=== PATIENT | female | born 1935 | race Caucasian/White ===

== ENCOUNTER → 2016-07-24 | Outpatient (CLI) | payer MEDICARE, OTHER ==
[~2016-07-24] MED LIST: ASPI1TAB69 PO; AZO-95TA2 PO; BYST5TAB2 PO; CETI-1 PO; CIPR-9 PO; CO Q200C PO; CPMMACHINE; ESTR42.5V VAGINAL; FERR65TA PO; FLUT1SPR5 EACH NARE; HYDR-3580 PO; KRIL300C PO; MULT-135 PO; NITR1CAP37 PO; REST0.05 EACH EYE; TAMO20TA6 PO; TEMA15CA PO; WALKER WHEELS/F1 MIS; XARE10TA PO; ZYRT10CA PO
[2016-07-24 13:08] LABS: BACTERIA, URINE RARE /hpf; BLOOD, URINE TRACE (NEG); COMMENT (UR) CULTURE INDICATED; CULTURE IF INDICATED CULTURE INDICATED; GLUCOSE,URINE NEG (NEG); HYALINE CAST, URINE 1 /lpf (RARE); KETONE, URINE NEG (NEG); NITRITE,URINE POS (NEG); PH, URINE 6.5 (5.0-8.5); SQUAMOUS EPITHELIAL CELL URINE <1 /hpf (0-5); URINE COLOR LIGHT-YELLOW (YELLW/STRAW)
== END ==
LOC: EDBD → PLAB 11:04
PROVIDERS: ATTEND Orthopaedic Surgery Orthopaedic Surgery of the Spine
DX: N39.0 Urinary tract infection, site not specified (principal); B96.1 Klebsiella pneumoniae [K. pneumoniae] as the cause of diseases classified elsewhere
CPT/HCPCS: 81001; 87077; 87086; 87186

== ENCOUNTER → 2016-10-25 | Outpatient (CLI) | payer MEDICARE, OTHER ==
[~2016-10-25] MED LIST changes: -ASPI1TAB69 PO; -CO Q200C PO; -FERR65TA PO; -KRIL300C PO; -TAMO20TA6 PO; -XARE10TA PO
[2016-10-25 16:54] LABS: BACTERIA, URINE OCC /hpf; BLOOD, URINE NEG (NEG); COMMENT (UR) CULTURE INDICATED; CULTURE IF INDICATED CULTURE INDICATED; GLUCOSE,URINE NEG (NEG); KETONE, URINE NEG (NEG); NITRITE,URINE POS (NEG); SQUAMOUS EPITHELIAL CELL URINE 7 /hpf (0-5); URINE COLOR YELLOW (YELLW/STRAW)
== END ==
LOC: EDBD → PLAB 15:50
PROVIDERS: ATTEND Obstetrics & Gynecology Gynecology
DX: N39.0 Urinary tract infection, site not specified (principal); B96.1 Klebsiella pneumoniae [K. pneumoniae] as the cause of diseases classified elsewhere
CPT/HCPCS: 81001; 87077; 87086; 87186

== ENCOUNTER → 2016-11-29 | Outpatient (CLI) | payer MEDICARE, OTHER ==
[~2016-11-29] MED LIST changes: -AZO-95TA2 PO; -CIPR-9 PO; -HYDR-3580 PO; -NITR1CAP37 PO
[2016-11-29 14:21] LABS: AUTOMATED NEUTROPHIL # 3.9 TH/MM3 (1.8-7.7); BASOPHIL % 0.4 % (0.0-2.0); EOSINOPHIL # 0.1 TH/MM3 (0-0.4); EOSINOPHIL % 1.4 % (0.0-4.0); HEMATOCRIT 35.3 % (35.0-46.0); HEMO FLAGS DIFF FINAL; LYMPHOCYTE # 2.4 TH/MM3 (1.0-4.8); MEAN CELL VOLUME 91.3 FL (80.0-100.0); MEAN CORPUSCULAR HEMOGLOBIN 30.5 PG (27.0-34.0); MEAN CORPUSCULAR HGB CONC 33.4 % (32.0-36.0); MONO % 8.3 % (0.0-8.0); NEUT % 55.9 % (16.0-70.0); PLATELET COUNT 278 TH/MM3 (150-450); RED BLOOD COUNT 3.87 MIL/MM3 (4.00-5.30); RED CELL DISTRIBUTION WIDTH 14.9 % (11.6-17.2)
[2016-11-29 14:23] LABS: BLOOD, URINE NEG (NEG); GLUCOSE,URINE NEG (NEG); HYALINE CAST, URINE 1 /lpf (RARE); KETONE, URINE NEG (NEG); NITRITE,URINE NEG (NEG); PH, URINE 6.5 (5.0-8.5); SQUAMOUS EPITHELIAL CELL URINE 1 /hpf (0-5); URINE COLOR YELLOW (YELLW/STRAW)
[2016-11-29 14:27] LABS: COMMENT (UR) CULT NOT INDICATED; CULTURE IF INDICATED CULT NOT INDICATED
[2016-11-29 14:44] LABS: ALKALINE PHOSPHATASE 81 U/L (45-117); ALT (GPT) 27 U/L (10-53); ANION GAP 5 MEQ/L (5-15); AST (GOT) 25 U/L (15-37); BICARBONATE 31.6 MEQ/L (21.0-32.0); BLOOD UREA NITROGEN 18 MG/DL (7-18); CHLORIDE 99 MEQ/L (98-107); GLOMERULAR FILTRATION RATE 65 ML/MIN (>89); GLUCOSE,FASTING 92 MG/DL (74-99); POTASSIUM 4.2 MEQ/L (3.5-5.1); SODIUM (NA) 136 MEQ/L (136-145); TOTAL BILIRUBIN ADULT 0.5 MG/DL (0.2-1.0)
== END ==
LOC: EDBD → CPRE 13:54
PROVIDERS: ATTEND Obstetrics & Gynecology Gynecology
DX: Z01.810 Encounter for preprocedural cardiovascular examination (principal); Z01.812 Encounter for preprocedural laboratory examination; N95.0 Postmenopausal bleeding
CPT/HCPCS: 36415; 80053; 81001; 85025

== ENCOUNTER → 2016-12-07 | Day surgery (SDC) | payer MEDICARE, OTHER ==
--- NOTE | 2016-11-30 08:21 | MH ---
cc: GHASSAN ARNOLD MD DATE OF ADMISSION 12/07/2016 DATE OF 1935 REASON FOR ADMISSION Hysteroscopy, D&C HISTORY OF PRESENT ILLNESS Patient is a 80-year-old white female 5, para 4 who has had an issue with breast cancer and was on tamoxifen for three years. She had an episode of postmenopausal bleeding and was found to have a thickened endometrial stripe. The patient had previous hysteroscopy and polypectomy a few years ago with benign pathology. Her ultrasound in November of 2016 shows a 9 mm stripe. The patient was given options and she has opted for repeat hysteroscopy. PAST MEDICAL HISTORY 1. Hypertension, 2. Hypercholesterolemia, 3. Breast cancer. 4. History of recurrent bladder infections. PAST SURGICAL HISTORY 1. Lumpectomy 2. Knee replacement bilaterally 3. Hysteroscopy D&C. ALLERGIES SULFA MEDICATIONS Bystolic 5 mg daily. GYNECOLOGIC HISTORY No STDs, abnormal Pap smears. Bleeding issue as noted above. OBSTETRICAL HISTORY Four vaginal deliveries. FAMILY HISTORY Noncontributory. SOCIAL HISTORY Has good social support. . No alcohol or drugs. REVIEW OF SYSTEMS Negative for chest pain, orthopnea, PND. PHYSICAL EXAMINATION VITAL SIGNS: She is afebrile. Vital signs stable. Blood pressure is 120/70, height is 5 feet 5 inches, weight 145, BMI is 24. GENERAL: Patient is alert, oriented in no acute distress, no sign of cognitive dysfunction or depression. HEENT: Within normal limits. NECK: Supple. No JVD. CHEST: Clear. HEART: Regular rate and rhythm. ABDOMEN: Soft, nontender. No hepatosplenomegaly. No CVA tenderness. PELVIC: Exam will be detailed under anesthesia. EXTREMITIES: Normal skin without rashes. NEUROLOGIC : Nonfocal. No DVT signs. ASSESSMENT Patient with postmenopausal bleeding, thickened endometrial stripe, history of tamoxifen use and prior benign polypectomy. The patient has opted to proceed with repeat hysteroscopy. She is aware of the risks, benefits and alternatives to planned procedure including damage to surrounding organs, bleeding, infection, need for further surgery. The patient will use DVT prophylaxis with Ancef 2 grams and she will use DVT prophylaxis with sequential compression device. Anticipate outpatient procedure. Ghassan Arnold MD CS/SA /5:03 PM /8:16 AM
[~2016-12-07] VITALS: Ht 166.4 cm; Wt 67.2 kg
[~2016-12-07] MED LIST changes: +*ONDANSETRON 4 MG VIAL PERIprocedural Use ONLY ONE; +ACETAMINOPHEN 1000 MG/100 ML VIAL IV ONE; +CHLORHEXIDINE GLUCONATE 2 % 1 PACK (2 CLOTHS) TOPICAL PRN; -CPMMACHINE; +DEXAMETHASONE SOD PHOS 4 MG/ML VIAL ONE; +DO NOT ADM ANY ANTICOAGULANT DRUGS PRN; +FAMOTIDINE 20 MG/2 ML VIAL ONE; +INSULIN HUMAN REGULAR 1,000 UNITS/10 ML VIAL SQ PRN; +KETOROLAC TROMETHAMINE 30 MG/ML (IVP) VIAL IV PUSH PRN; +KETOROLAC TROMETHAMINE 60 MG/2 ML (IM) VIAL IM ONE; +LACTATED RINGER'S 1000 ML IV PRN; +METOPROLOL TARTRATE 25 MG TAB PO PRN; +MIDAZOLAM HCL 2 MG/2 ML VIAL ONE; -MULT-135 PO; +ONDANSETRON HCL 4 MG/2 ML VIAL IV PUSH ONE; +ONDANSETRON HCL 4 MG/2 ML VIAL IV PUSH PRN; +POVIDONE IODINE 5% (ANTISEPSIS KIT) 4 APPLICATIONS EACH NARE PRN; +PROPOFOL 200 MG/20 ML AMP IV ONE; +SODIUM CHLORID 0.9% 500 ML IV PRN; -WALKER WHEELS/F1 MIS; -ZYRT10CA PO; +ceFAZolin 2 GM PREMIX 50 ML IV SCH; +traMADol HCL 50 MG TAB PO PRN
[2016-12-07 06:54] VITALS: BP 150/70; PULSE 60; RESP 18; TEMP 97.9; O2SAT 100
[2016-12-07 10:39] VITALS: BP 143/63; PULSE 53; RESP 16; TEMP 97.4; O2SAT 99
--- NOTE | 2016-12-08 18:25 | MP ---
cc: GHASSAN ARNOLD MD DATE OF SURGERY 12/07/16 PREOPERATIVE DIAGNOSES Abnormal pelvic ultrasound with thickened endometrial stripe and postmenopausal bleeding. POSTOPERATIVE DIAGNOSIS Abnormal pelvic ultrasound with thickened endometrial stripe and postmenopausal bleeding. Endometrial polyp. PROCEDURE Operative hysteroscopy with removal of 2 cm endometrial polyp. SURGEON MD Deo ANESTHESIA Laryngeal mask. BLOOD LOSS 5 cc. URINE OUTPUT 300 prior to case. STOCK TAKER [place] staff x1. FINDINGS Externa genitalia normal. POP-Q score: Aa is -1, Ap is -1. Point C is -3. Total vaginal length is 10. Genital hiatus is 8. Perineal body is 4. Uterus sounds to 8 cm, mobile, anteverted, anteflexed. No adnexal mass. Hysteroscopy shows a sessile 2-cm polyp posterior wall, otherwise, relatively atrophic endometrium. COMPLICATIONS None. DISPOSITION Recovery room stable. COUNTS Needle, sponge correct. DRAINS None. SPECIMENS Endometrial polyp. Endometrial curettage. SUMMARY OF INDICATION PROCEDURE Patient with history of breast cancer, had been using tamoxifen, had been worked up for issues with pelvic prolapse and urinary urgency, was found to have thickened endometrial stripe. With the patient's history of tamoxifen used hysteroscopy was recommended with polypectomy. PROCEDURE IN DETAIL The patient was taken to the operating theater, prepped and draped in fashion appropriate for planned procedure. She was in dorsal lithotomy position with careful attention paid to placement of legs in stirrups to avoid undue stress to sensitive neurovascular structures. Above findings noted. Neurovascular integrity documented. Bladder was drained. Cervix was grasped with tenaculum. Cervix required minimal dilation. Uterus sounds to 8 cm. 5 mm scope was used with normal saline as distension medium. The above findings noted. Sessile polyp was identified and removed mechanically with no electric energy. Hemostasis was good. Curettage was obtained. Repeat hysteroscopy was performed showing atrophic endometrium and removal of polyp. Procedure was concluded. The patient reversed from anesthesia to recovery room in stable condition. The patient has issues with pelvic prolapse. She could be reasonable anterior posterior repair candidate with vaginal hysterectomy. Ghassan Arnold MD CS/EO /9:10 AM /6:13 PM
== END | disposition home or self-care (01) ==
LOC: HSDC 06:20 → EDBD 06:20
PROVIDERS: ATTEND Obstetrics & Gynecology Gynecology
DX: N84.0 Polyp of corpus uteri (principal); N95.0 Postmenopausal bleeding; I10 Essential (primary) hypertension; E78.00 Pure hypercholesterolemia, unspecified; Z85.3 Personal history of malignant neoplasm of breast; Z96.653 Presence of artificial knee joint, bilateral; Z88.2 Allergy status to sulfonamides; Z79.810 Long term (current) use of selective estrogen receptor modulators (SERMs)
CPT/HCPCS: 88305; J0131; J0690; J1100; J1885; J2250; J2405; J3010; J7120

== ENCOUNTER → 2017-03-07 | Outpatient (CLI) | payer MEDICARE, OTHER ==
[~2017-03-07] MED LIST changes: -*ONDANSETRON 4 MG VIAL PERIprocedural Use ONLY ONE; -ACETAMINOPHEN 1000 MG/100 ML VIAL IV ONE; -CHLORHEXIDINE GLUCONATE 2 % 1 PACK (2 CLOTHS) TOPICAL PRN; -DEXAMETHASONE SOD PHOS 4 MG/ML VIAL ONE; -DO NOT ADM ANY ANTICOAGULANT DRUGS PRN; -FAMOTIDINE 20 MG/2 ML VIAL ONE; -INSULIN HUMAN REGULAR 1,000 UNITS/10 ML VIAL SQ PRN; -KETOROLAC TROMETHAMINE 30 MG/ML (IVP) VIAL IV PUSH PRN; -KETOROLAC TROMETHAMINE 60 MG/2 ML (IM) VIAL IM ONE; -LACTATED RINGER'S 1000 ML IV PRN; -METOPROLOL TARTRATE 25 MG TAB PO PRN; -MIDAZOLAM HCL 2 MG/2 ML VIAL ONE; -ONDANSETRON HCL 4 MG/2 ML VIAL IV PUSH ONE; -ONDANSETRON HCL 4 MG/2 ML VIAL IV PUSH PRN; -POVIDONE IODINE 5% (ANTISEPSIS KIT) 4 APPLICATIONS EACH NARE PRN; -PROPOFOL 200 MG/20 ML AMP IV ONE; -SODIUM CHLORID 0.9% 500 ML IV PRN; -ceFAZolin 2 GM PREMIX 50 ML IV SCH; -traMADol HCL 50 MG TAB PO PRN
[2017-03-07 12:47] LABS: AUTOMATED NEUTROPHIL # 2.4 TH/MM3 (1.8-7.7); BASOPHIL % 0.6 % (0.0-2.0); EOSINOPHIL # 0.2 TH/MM3 (0-0.4); EOSINOPHIL % 3.3 % (0.0-4.0); HEMATOCRIT 36.9 % (35.0-46.0); HEMO FLAGS DIFF FINAL; LYMPH % 42.5 % (9.0-44.0); LYMPHOCYTE # 2.3 TH/MM3 (1.0-4.8); MEAN CELL VOLUME 94.5 FL (80.0-100.0); MEAN CORPUSCULAR HEMOGLOBIN 31.9 PG (27.0-34.0); MEAN CORPUSCULAR HGB CONC 33.7 % (32.0-36.0); MONO % 9.7 % (0.0-8.0); NEUT % 43.9 % (16.0-70.0); PLATELET COUNT 271 TH/MM3 (150-450); RED BLOOD COUNT 3.91 MIL/MM3 (4.00-5.30); RED CELL DISTRIBUTION WIDTH 13.5 % (11.6-17.2); WHITE BLOOD COUNT 5.5 TH/MM3 (4.0-11.0)
[2017-03-07 13:20] LABS: ANION GAP 6 MEQ/L (5-15); AST (GOT) 22 U/L (15-37); BICARBONATE 29.8 MEQ/L (21.0-32.0); BLOOD UREA NITROGEN 18 MG/DL (7-18); CHLORIDE 103 MEQ/L (98-107); GLOMERULAR FILTRATION RATE 71 ML/MIN (>89); GLUCOSE,FASTING 81 MG/DL (74-99); POTASSIUM 4.1 MEQ/L (3.5-5.1); SODIUM (NA) 139 MEQ/L (136-145)
[2017-03-07 13:33] LABS: ALKALINE PHOSPHATASE 74 U/L (45-117); ALT (GPT) 23 U/L (10-53); TOTAL BILIRUBIN ADULT 0.5 MG/DL (0.2-1.0)
== END ==
LOC: PLAB 08:32
PROVIDERS: ATTEND Family Medicine
DX: I10 Essential (primary) hypertension (principal); E34.9 Endocrine disorder, unspecified
CPT/HCPCS: 36415; 80053; 84443; 85025

== ENCOUNTER → 2017-07-17 | Outpatient (CLI) | payer MEDICARE, OTHER ==
[2017-07-17 09:37] LABS: AUTOMATED NEUTROPHIL # 2.4 TH/MM3 (1.8-7.7); BASOPHIL % 0.6 % (0.0-2.0); EOSINOPHIL # 0.2 TH/MM3 (0-0.4); EOSINOPHIL % 3.5 % (0.0-4.0); HEMATOCRIT 35.2 % (35.0-46.0); HEMOGLOBIN 12.1 GM/DL (11.6-15.3); LYMPH % 39.5 % (9.0-44.0); LYMPHOCYTE # 2.1 TH/MM3 (1.0-4.8); MEAN CELL VOLUME 92.9 FL (80.0-100.0); MEAN CORPUSCULAR HEMOGLOBIN 31.9 PG (27.0-34.0); MEAN CORPUSCULAR HGB CONC 34.4 % (32.0-36.0); MEAN PLATELET VOLUME 7.2 FL (7.0-11.0); MONO % 11.3 % (0.0-8.0); MONOCYTE # 0.6 TH/MM3 (0-0.9); NEUT % 45.1 % (16.0-70.0); PLATELET COUNT 284 TH/MM3 (150-450); RED BLOOD COUNT 3.79 MIL/MM3 (4.00-5.30); RED CELL DISTRIBUTION WIDTH 13.7 % (11.6-17.2); WHITE BLOOD COUNT 5.2 TH/MM3 (4.0-11.0)
[2017-07-17 10:01] LABS: BICARBONATE 27.5 MEQ/L (21.0-32.0); CALCIUM 8.9 MG/DL (8.5-10.1); CREATININE 0.85 MG/DL (0.50-1.00)
== END ==
LOC: PLAB 08:03
PROVIDERS: ATTEND Orthopaedic Surgery Orthopaedic Surgery of the Spine
DX: Z01.812 Encounter for preprocedural laboratory examination (principal); M25.531 Pain in right wrist; G56.01 Carpal tunnel syndrome, right upper limb
CPT/HCPCS: 36415; 80048; 85025

== ENCOUNTER → 2017-09-03 | Outpatient (CLI) | payer MEDICARE, OTHER ==
[2017-09-03 13:35] LABS: AUTOMATED NEUTROPHIL # 2.6 TH/MM3 (1.8-7.7); BASOPHIL % 0.5 % (0.0-2.0); EOSINOPHIL # 0.2 TH/MM3 (0-0.4); EOSINOPHIL % 2.7 % (0.0-4.0); HEMATOCRIT 36.5 % (35.0-46.0); HEMOGLOBIN 12.5 GM/DL (11.6-15.3); LYMPH % 40.4 % (9.0-44.0); LYMPHOCYTE # 2.2 TH/MM3 (1.0-4.8); MEAN CELL VOLUME 94.4 FL (80.0-100.0); MEAN CORPUSCULAR HEMOGLOBIN 32.4 PG (27.0-34.0); MEAN CORPUSCULAR HGB CONC 34.4 % (32.0-36.0); MEAN PLATELET VOLUME 7.4 FL (7.0-11.0); MONO % 9.4 % (0.0-8.0); MONOCYTE # 0.5 TH/MM3 (0-0.9); PLATELET COUNT 279 TH/MM3 (150-450); RED BLOOD COUNT 3.87 MIL/MM3 (4.00-5.30); RED CELL DISTRIBUTION WIDTH 13.5 % (11.6-17.2); WHITE BLOOD COUNT 5.5 TH/MM3 (4.0-11.0)
[2017-09-03 13:43] LABS: BACTERIA, URINE MOD /hpf; BILIRUBIN, URINE NEG (NEG); BLOOD, URINE TRACE (NEG); GLUCOSE,URINE NEG (NEG); KETONE, URINE NEG (NEG); MUCUS URINE FEW /lpf (OCC); NITRITE,URINE NEG (NEG); SQUAMOUS EPITHELIAL CELL URINE 3 /hpf (0-5); URINE COLOR LIGHT-YELLOW (YELLW/STRAW); URINE LEUKOCYTE ESTERASE NEG (NEG)
[2017-09-03 13:45] LABS: ALBUMIN 3.9 GM/DL (3.4-5.0); AST (GOT) 21 U/L (15-37); BLOOD UREA NITROGEN 21 MG/DL (7-18); CALCIUM 9.2 MG/DL (8.5-10.1); CHLORIDE 103 MEQ/L (98-107); CHOLESTEROL 249 MG/DL (120-200); CREATININE 0.82 MG/DL (0.50-1.00); GLOMERULAR FILTRATION RATE 67 ML/MIN (>89); GLUCOSE,FASTING 83 MG/DL (74-99); SODIUM (NA) 138 MEQ/L (136-145)
[2017-09-03 13:55] LABS: ALKALINE PHOSPHATASE 73 U/L (45-117); ALT (GPT) 18 U/L (10-53); CHOLESTEROL/ HDL RATIO 3.49 RATIO; HDL CHOLESTEROL 71.3 MG/DL (40.0-60.0); LDL CHOLESTEROL 147 MG/DL (0-99); LDL CHOLESTEROL DIRECT 161 MG/DL (0-99); TOTAL BILIRUBIN ADULT 0.5 MG/DL (0.2-1.0); TOTAL PROTEIN 7.3 GM/DL (6.4-8.2); TRIGLYCERIDES 155 MG/DL (42-150)
== END ==
LOC: PLAB 08:21
PROVIDERS: ATTEND Family Medicine
DX: I10 Essential (primary) hypertension (principal); E78.5 Hyperlipidemia, unspecified; R31.29 Other microscopic hematuria
CPT/HCPCS: 36415; 80053; 80061; 81001; 83721; 84443; 85025; 87086

== ENCOUNTER → 2017-09-19 | Outpatient (CLI) | payer MEDICARE, OTHER ==
[~2017-09-19] MED LIST changes: +MULTTAB67 PO; +TEMA7.5C PO
[2017-09-19 10:39] LABS: AUTOMATED NEUTROPHIL # 2.8 TH/MM3 (1.8-7.7); BASOPHIL % 0.5 % (0.0-2.0); EOSINOPHIL # 0.2 TH/MM3 (0-0.4); EOSINOPHIL % 2.8 % (0.0-4.0); HEMATOCRIT 35.7 % (35.0-46.0); HEMOGLOBIN 12.3 GM/DL (11.6-15.3); LYMPH % 36.3 % (9.0-44.0); MEAN CELL VOLUME 93.4 FL (80.0-100.0); MEAN CORPUSCULAR HGB CONC 34.3 % (32.0-36.0); MEAN PLATELET VOLUME 7.1 FL (7.0-11.0); MONO % 10.6 % (0.0-8.0); MONOCYTE # 0.6 TH/MM3 (0-0.9); NEUT % 49.8 % (16.0-70.0); PLATELET COUNT 282 TH/MM3 (150-450); RED BLOOD COUNT 3.83 MIL/MM3 (4.00-5.30); RED CELL DISTRIBUTION WIDTH 13.4 % (11.6-17.2); WHITE BLOOD COUNT 5.6 TH/MM3 (4.0-11.0)
[2017-09-19 10:42] LABS: PROTHROMBIN TIME - PATIENT 10.1 SEC (9.8-11.6)
[2017-09-19 11:00] LABS: AST (GOT) 22 U/L (15-37); BICARBONATE 27.3 MEQ/L (21.0-32.0); BLOOD UREA NITROGEN 20 MG/DL (7-18); CALCIUM 9.5 MG/DL (8.5-10.1); CHLORIDE 103 MEQ/L (98-107); CREATININE 0.84 MG/DL (0.50-1.00); GLOMERULAR FILTRATION RATE 65 ML/MIN (>89); GLUCOSE,FASTING 83 MG/DL (74-99); SODIUM (NA) 140 MEQ/L (136-145)
[2017-09-19 11:04] LABS: ALKALINE PHOSPHATASE 77 U/L (45-117); ALT (GPT) 20 U/L (10-53); TOTAL BILIRUBIN ADULT 0.5 MG/DL (0.2-1.0); TOTAL PROTEIN 7.1 GM/DL (6.4-8.2)
--- NOTE | 2017-09-19 12:08 | RADRPT ---
EXAM DATE/TIME: 09/19/2017 11:55 [facility] COMPARISON: No previous studies available for comparison. INDICATIONS : Evaluate for pneumonia, pneumothorax and communicable diseases. Pre-op hysterectomy. MEDICAL HISTORY : Carcinoma, breast. Arthritis. Anemia SURGICAL HISTORY : Left breast lumpectomy ENCOUNTER: Initial ACUITY: 1 day PAIN SCORE: 0/10 LOCATION: Bilateral chest FINDINGS: PA and lateral views of the chest demonstrate the lungs to be symmetrically aerated without evidence of mass, infiltrate or effusion. Calcified granuloma right upper lobe. Clips overlying the left ches t. The cardiomediastinal contours are unremarkable. Osseous structures are intact. CONCLUSION: No acute disease. Vasile Watkins MD on September 19, 2017 at 12:06 Board Certified Radiologist. This report was verified electronically.
== END ==
LOC: CPRE 10:00
PROVIDERS: ATTEND Obstetrics & Gynecology Gynecologic Oncology
DX: Z01.810 Encounter for preprocedural cardiovascular examination (principal); Z01.811 Encounter for preprocedural respiratory examination; Z01.812 Encounter for preprocedural laboratory examination; Z01.818 Encounter for other preprocedural examination; N95.0 Postmenopausal bleeding; N85.00 Endometrial hyperplasia, unspecified
CPT/HCPCS: 36415; 71046; 80053; 85025; 85610; 85730

== ENCOUNTER 2017-10-03 08:25 | Observation (INO) | payer MEDICARE, OTHER ==
[~2017-10-03] VITALS: Ht 165.1 cm; Wt 69.7 kg
[~2017-10-03 08:25] MED LIST changes: -TEMA15CA PO
[2017-10-03] MEDS ORDERED: ceFAZolin 1,000 MG/NS 100 ML IV SCH ×2 (08:45)
[2017-10-03] MEDS ORDERED: HEPARIN SODIUM - SQ 10,000 UNITS/ML VIAL SQ SCH (08:45)
[2017-10-03] MEDS ORDERED: LACTATED RINGER'S 1000 ML IV PRN (09:00)
[2017-10-03] MEDS ORDERED: POVIDONE IODINE 5% (ANTISEPSIS KIT) 4 APPLICATIONS EACH NARE PRN (09:00)
[2017-10-03] MEDS ORDERED: SODIUM CHLORID 0.9% 500 ML IV PRN (09:00)
[2017-10-03] MEDS ORDERED: CHLORHEXIDINE GLUCONATE 2 % 1 PACK (2 CLOTHS) TOPICAL PRN (09:00)
[2017-10-03] MEDS ORDERED: METOPROLOL TARTRATE 25 MG TAB PO PRN (09:00)
[2017-10-03] MEDS ORDERED: INSULIN HUMAN REGULAR 1,000 UNITS/10 ML VIAL SQ PRN (09:00)
[2017-10-03] MEDS ORDERED: ACETAMINOPHEN 1000 MG/100 ML 100 ML IV ONE (11:32)
[2017-10-03] MEDS ORDERED: SUGAMMADEX SODIUM 200 MG/2 ML VIAL IV PUSH ONE (11:32)
[2017-10-03] MEDS ORDERED: FAMOTIDINE 20 MG/2 ML VIAL ONE (11:33)
[2017-10-03] MEDS ORDERED: ONDANSETRON HCL 4 MG/2 ML VIAL IV ONE (12:00)
[2017-10-03] MEDS ORDERED: NORMOSOL R INJ 1,000 ML IV ONE (12:00)
[2017-10-03] MEDS ORDERED: ePHEDrine/NS 25 MG/5 ML SYRINGE IV ONE (12:00)
[2017-10-03] MEDS ORDERED: STERILE WATER FOR INJECTION 20 ML VIAL IV ONE (12:00)
[2017-10-03] MEDS ORDERED: VECURONIUM BROMIDE 20 MG VIAL IV ONE (12:00)
[2017-10-03] MEDS ORDERED: GLYCOPYRROLATE 1 MG/5 ML SYRINGE IV PUSH ONE (12:00)
[2017-10-03] MEDS ORDERED: LIDOCAINE HCL 1% PF 5 ML SYRINGE OTHER ONE (12:00)
[2017-10-03] MEDS ORDERED: DEXAMETHASONE SOD PHOS 4 MG/ML VIAL IV ONE (12:00)
[2017-10-03] MEDS ORDERED: ROCURONIUM INJ 50 MG/5 ML SYRINGE IV PUSH ONE (12:00)
[2017-10-03] MEDS ORDERED: PROPOFOL 200 MG/20 ML AMP IV ONE (12:00)
[2017-10-03] MEDS ORDERED: KETOROLAC TROMETHAMINE 30 MG/ML (IVP) VIAL IV PUSH ONE (12:00)
[2017-10-03] MEDS ORDERED: BUPIVACAINE/EPINEPHRINE 0.25% PF 30 ML VIAL INFIL ONE (14:41)
[2017-10-03] MEDS ORDERED: TEMAZEPAM 7.5 MG CAP PO PRN (15:30)
[2017-10-03] MEDS ORDERED: SODIUM CHLORIDE 0.9% FLUSH 10 ML FLUSH IV FLUSH PRN (15:30)
[2017-10-03] MEDS ORDERED: diphenhydrAMINE HCL 25 MG CAP PO PRN (15:30)
[2017-10-03] MEDS ORDERED: ONDANSETRON HCL 4 MG/2 ML VIAL IVP PRN (15:30)
[2017-10-03] MEDS ORDERED: oxyCODONE/ACETAMINOPHEN 5 MG/325 MG TAB PO PRN (15:30)
[2017-10-03] MEDS ORDERED: MIDAZOLAM HCL 2 MG/2 ML VIAL ONE (15:48)
[2017-10-03] MEDS ORDERED: MORPHINE SULFATE 4 MG/ML INJ ONE (15:49)
[2017-10-03] MEDS: D5-1/2 NS + KCL 20 MEQ INJ 1,000 ML IV SCH (16:00)
[2017-10-03] MEDS ORDERED: KETOROLAC TROMETHAMINE 30 MG/ML (IVP) VIAL IVP SCH (16:00)
[2017-10-03] MEDS ORDERED: *morphine SULFATE 4 MG/ML PERIprocedure ONLY ONE (16:28)
[2017-10-03] MEDS ORDERED: DO NOT ADM ANY ANTICOAGULANT DRUGS PRN (16:30)
[2017-10-03 17:30] VITALS: BP 158/65; PULSE 72; RESP 18; TEMP 97.5; O2SAT 99
[2017-10-03] MEDS: oxyCODONE/ACETAMINOPHEN 5 MG/325 MG TAB PO PRN (18:15)
[2017-10-03] MEDS ORDERED: FLUTICASONE PROPIONATE 50 MCG/ACT 16 GM NASAL SPRAY EACH NARE PRN (21:00)
[2017-10-03] MEDS ORDERED: PATIENT OWN MEDICATION (Cyclosporine Opth (Restasis Opth) 1 DROP) EACH EYE SCH (21:00)
[2017-10-03] MEDS ORDERED: SODIUM CHLORIDE 0.9% FLUSH 10 ML FLUSH IV FLUSH SCH (21:00)
[2017-10-03 21:30] VITALS: BP 164/68; PULSE 66; RESP 18; TEMP 98.2; O2SAT 99
[2017-10-03] MEDS: KETOROLAC TROMETHAMINE 30 MG/ML (IVP) VIAL IVP SCH (22:00)
[2017-10-04] VITALS: BP 150/59; PULSE 62; RESP 18; TEMP 98; O2SAT 97
[2017-10-04] MEDS: D5-1/2 NS + KCL 20 MEQ INJ 1,000 ML IV SCH (01:02)
[2017-10-04 04:00] VITALS: BP 131/49; PULSE 78; RESP 18; TEMP 98.4; O2SAT 97
[2017-10-04] MEDS: KETOROLAC TROMETHAMINE 30 MG/ML (IVP) VIAL IVP SCH (04:27)
[2017-10-04 05:52] LABS: AUTOMATED NEUTROPHIL # 10.4 TH/MM3 (1.8-7.7); BASOPHIL % 0.2 % (0.0-2.0); EOSINOPHIL % 0.1 % (0.0-4.0); HEMATOCRIT 32.1 % (35.0-46.0); HEMOGLOBIN 10.9 GM/DL (11.6-15.3); LYMPH % 12.8 % (9.0-44.0); LYMPHOCYTE # 1.7 TH/MM3 (1.0-4.8); MEAN CELL VOLUME 93.7 FL (80.0-100.0); MEAN CORPUSCULAR HEMOGLOBIN 31.9 PG (27.0-34.0); MEAN PLATELET VOLUME 7.5 FL (7.0-11.0); MONO % 8.4 % (0.0-8.0); MONOCYTE # 1.1 TH/MM3 (0-0.9); NEUT % 78.5 % (16.0-70.0); PLATELET COUNT 244 TH/MM3 (150-450); RED BLOOD COUNT 3.42 MIL/MM3 (4.00-5.30); RED CELL DISTRIBUTION WIDTH 13.1 % (11.6-17.2); WHITE BLOOD COUNT 13.2 TH/MM3 (4.0-11.0)
[2017-10-04 06:19] LABS: BICARBONATE 26.4 MEQ/L (21.0-32.0); CALCIUM 7.6 MG/DL (8.5-10.1); CREATININE 0.67 MG/DL (0.50-1.00)
[2017-10-04] MEDS ORDERED: OXYC1TAB63 PO (07:27)
[2017-10-04 07:46] VITALS: BP 137/53; PULSE 65; RESP 18; TEMP 98.6; O2SAT 99
--- NOTE | 2017-10-04 07:52 | MD ---
cc: Dilma Rg MD, Christopher J MD Billmeier,Juan M Vanegas MD DATE OF DISCHARGE: 10/04/2017 PROCEDURE: 10/03/2017. PROCEDURE PERFORMED: Robotic-assisted laparoscopic hysterectomy, bilateral salpingo-oophorectomy, lysis of adhesions. DIAGNOSIS: Thickened endometrial stripe, postmenopausal bleeding, endometrial polyp. HOSPITAL COURSE: She remained hemodynamically stable, did well in the early postop period tolerating oral intake. Montalvo catheter was left indwelling due to some dissection near the bladder. Objective ins and outs 1600/1650. LABS: H and H this morning 10.9 and 32.1. Electrolytes, BUN and creatinine 11 and 0.67. PHYSICAL EXAMINATION: VITAL SIGNS: Afebrile, pulse 60-78, respirations 16-18, blood pressure 131-164/49-71, O2 saturations greater than or equal to 97%. GENERAL: Alert and oriented x 3, no acute distress. LUNGS: Clear. Mild basilar rales. CARDIOVASCULAR: Regular rate and rhythm. ABDOMEN: Soft. Incision is clean and dry. GYNECOLOGIC: No bleeding. EXTREMITIES: Nontender. ASSESSMENT: Postoperative day #1, doing well in the early postop period. The preliminary pathology findings at the of surgery, steps taken were discussed and reviewed. Questions were asked and answered. Activities and restrictions included in our discussion. She expressed a good understanding. PLAN: Anticipate she will meet criteria for discharge to home today. She is to contact the office to followup in 1 week. She is going to have an indwelling Montalvo due to some oversewing adjacent to the bladder to help facilitate healing. She will be on Macrodantin once daily as a urinary tract prophylaxis. She will have a prescription for Percocet. She is to resume prior medications and she is to call our office to ensure that she has a followup in 1 week or to contact us sooner should she have any questions or problems. Dilma Rg MD KLM/DL , 07:31 AM , 07:51 AM
--- NOTE | 2017-10-04 08:30 | MP ---
cc: Dilma Rg MD, Christopher J MD Billmeier,Juan M Vanegas MD DATE OF OPERATION: 10/03/2017 PREOPERATIVE DIAGNOSIS: 1. Postmenopausal bleeding. 2. Thickened endometrial stripe. POSTOPERATIVE DIAGNOSES: 1. Postmenopausal bleeding. 2. Thickened endometrial stripe. 3. Endometrial polyp and pelvic adhesions and a significant diverticulum without active diverticulitis. PROCEDURE PERFORMED: Laparoscopic hysterectomy, bilateral salpingo-oophorectomy, lysis of adhesions. SURGEON: Dilma Rg MD VARNISH DIPPER: Dylan supply chain assistant. ANESTHESIA: General endotracheal anesthesia. ESTIMATED BLOOD LOSS: 75 mL. URINE OUTPUT: 100 mL. IV FLUIDS: 1400 mL. INDICATIONS: This is a 81-year-old female with a history of breast cancer who had been on tamoxifen, thickened endometrial stripe. Prior sampling showed benign tissue; however, she continued to have some intermittent postmenopausal bleeding. The stripe remained thickened. She had concerns regarding the possibility of malignancy and was troubled by the symptoms and wanted definitive management. She was counseled in our office and seen again in the preoperative holding area where we reviewed the findings and recommendations. The plan of care was again discussed. She expressed a good understanding and would like to move forward with surgery. FINDINGS: The cervix was circumferentially prominent, but otherwise normal. Recent Pap smear was normal. The uterus sounded to 8 cm symmetrically slightly prominent, but otherwise normal. Tubes and ovaries grossly appeared normal. There were no appreciably enlarged retroperitoneal lymph nodes. There were no peritoneal implants. There was significant diverticulum in the descending colon, most noted in the sigmoid colon with some adjacent adhesions against the left pelvic sidewall, left posterior cul-de-sac and in the region of the bladder. There was a prominent posterior cul-de-sac with loops of small bowel suggestive of a chronic enterocele without adhesions to the small bowel. Preliminary pathology shows what appears to be a small benign endometrial polyp. No other significant findings detected. PROCEDURE: She was taken to the operating room and placed in dorsal lithotomy position after general endotracheal anesthesia was administered. Time-out was undertaken. She was identified by site recognition and hospital ID bracelet and the proposed procedure was reviewed and confirmed. She was carefully positioned in padded Henrry stirrups. Her arms were padded and secured to the sides. She was further secured to the operating table with egg crate padding and tape in a cross chest, over the shoulder fashion. All sites noted to be properly aligned with no malalignment or pressure points. She was prepped and draped in sterile fashion, placed in lithotomy position. The cervix was grasped. Uterine cavity was sounded. Cervix dilated and a large VCare manipulator inserted and secured in usual fashion. Montalvo catheter placed in the bladder. She was returned to the low lithotomy position. We confirmed that an orogastric tube was in the stomach on suction. A change of sterile gloves had been undertaken and we completed draping in anticipation of laparoscopy. Manual elevation of the abdominal wall and direct laparoscopic visualization, a 5 mm cannula introduced in the left upper quadrant. An atraumatic entry was confirmed. Carbon dioxide gas was insufflated. A 12 mm cannula placed in the midline above the umbilicus, 8 mm cannula placed in the right upper quadrant, left lateral quadrant and the original 5 exchanged for an 8 mm cannula. She was placed in Trendelenburg position. Peritoneal washings were obtained for cytology. The anatomy was surveyed with findings as described above. The small bowel loops were retracted from the pelvis, rolled back on the mesenteric root into the abdomen and three Ray-Saleem sponges were placed across the root of the small bowel mesentery. The robotic system brought into the operative field, attached in the usual fashion. Robotic system attached in the usual fashion. Monopolar scissors, fenestrated bipolar forceps and a ProGrasp manipulator placed in arms 1, 2 and 3 respectively. I took my place at the surgeon's console. Initial adhesiolysis was started taking down the adhesions from the cul-de-sac, mobilizing the colon from its attachments to the left pelvic sidewall to gain access to the retroperitoneal structures. The right round ligament was isolated, cauterized and transected. The anterior and posterior leaves of the broad ligament were opened. The right ureter was identified. The right infundibulopelvic ligament was isolated to the level of the pelvic brim where it was cauterized and transected. The posterior peritoneum opened along the right side of the uterus and cervix and the right vesicouterine peritoneum was dissected off the lower uterine segment and cervix. Some additional scar tissue was taken down with sharp dissection. The right uterine vessels were skeletonized, cauterized and transected as were the cardinal, paracervical and uterosacral ligaments thereby freeing the attachments along the right side of the uterus and cervix. Additional lysis of adhesion was carried out on the left side. The left round ligament was isolated, cauterized and transected. The anterior and posterior leafs of the broad ligament were opened. Left ureter was identified. Left infundibulopelvic ligament was isolated, it was isolated to the level of the pelvic brim where it was cauterized and transected. Posterior peritoneum opened along the left side of the uterus and cervix and the left vesicouterine peritoneum was dissected off the lower uterine segment and cervix. The left uterine vessels were skeletonized, cauterized and transected as were the cardinal , paracervical and uterosacral ligament, thereby freeing the attachments along the left side of the uterus and cervix. Circumferential colpotomy was performed. Specimen was withdrawn transvaginally which included uterus, cervix, tubes and ovaries. A pneumo-occluder balloon was placed in the vagina to maintain pneumoperitoneum. Instruments 1 and 3 exchanged for needle drivers as a 0 Vicryl suture was introduced. The vaginal cuff was closed starting at the left corner full thickness closure incorporating the uterosacral ligament and posterior peritoneum, tied via instrument tie and a running continuous closure was continued across the vaginal apex toward the contralateral corner where it was similarly fixed, secured and tied. The suture was cut and the needle was removed. An additional [id number]-vp-[id number] supporting suture incorporating the uterosacral ligament on the right side was also placed to help facilitate anatomical support, tied the instrument tie, the needle was cut and removed. The pelvis was thoroughly irrigated. Small bleeders rendered hemostatic with bipolar cautery. All sites satisfactorily hemostatic. The bladder was filled with saline dyed with methylene blue. There was a nice margin between the bladder edge and the vaginal cuff suture line. Good peristalsis of ureters bilaterally. The bladder was intact. No areas of thinning of the bladder. No blue visibility, certainly no extravasation of dye; however, some perivesical adipose tissue and peritoneum were disrupted in the dissection and taken down as scar tissue. Accordingly, 3-0 Vicryl suture was introduced. Interrupted 3-0 Vicryl [id number]-[id number] sutures were used to reapproximate this tissue to lend further support and maximize healing and the bladder was drained after continued confirmation of an intact bladder. The needle was cut. The pelvis was again thoroughly irrigated. The pathology came back showing what appeared to be a small benign polyp from the endometrium. Therefore, it was felt that all reasonable surgical objectives had been completed. The instruments were removed. The robotic system was disengaged from the operative field. I reentered the bedside under sterile condition. Each of the 3 Ray-Saleem sponges that had been placed were removed. Each were inspected and noted to be removed in their entirety and there were no remaining foreign objects in the peritoneal cavity. Preliminary counts were correct. 0 Vicryl suture was used with a needle pass a closure apparatus to close the 12 mm fascial defect. It was tied securely which rendered the fascia completely airtight and hemostatic. The remaining cannulas were withdrawn. Carbon dioxide gas was removed. 3-0 Vicryl, subcutaneous 2-0 Vicryl subcuticular and Steri-Strips were used to close these incisions. She was returned to dorsal lithotomy position. Pelvic exam confirmed the vaginal cuff to be well supported. No vaginal lacerations. No remaining foreign objects in the vagina. Final counts were correct. She was returned to dorsal supine position and was pending reversal of anesthesia when I left the operating room to proceed her to the Postanesthesia Care Unit. MD FRANK Morrow/JEANETTE , 07:45 AM , 08:29 AM
[2017-10-04] MEDS ORDERED: NITROFURANTOIN MONOHYD MACROCR 100 MG CAP PO SCH (09:00)
[2017-10-04] MEDS ORDERED: NEBIVOLOL 5 MG TAB PO SCH (09:00)
[2017-10-04] MEDS ORDERED: CETIRIZINE HCL 10 MG TAB PO SCH (09:00)
[2017-10-04] MEDS: oxyCODONE/ACETAMINOPHEN 5 MG/325 MG TAB PO PRN (09:38)
[2017-10-04 10:15] VITALS: RESP 16
== END 2017-10-04 10:14 | disposition home or self-care (01) ==
LOC: HSDC 08:25 → HSDI 15:31 → H1EA 17:24
PROVIDERS: ADMIT Obstetrics & Gynecology Gynecologic Oncology; ATTEND Obstetrics & Gynecology Gynecologic Oncology
DX: N95.0 Postmenopausal bleeding (principal); N84.0 Polyp of corpus uteri; D25.9 Leiomyoma of uterus, unspecified; N73.6 Female pelvic peritoneal adhesions (postinfective); K57.30 Diverticulosis of large intestine without perforation or abscess without bleeding; N88.8 Other specified noninflammatory disorders of cervix uteri; M19.90 Unspecified osteoarthritis, unspecified site; Z79.82 Long term (current) use of aspirin; Z85.3 Personal history of malignant neoplasm of breast
CPT/HCPCS: 00840; 58552; 80048; 85025; 86850; 86900; 86901; 88112; 88307; 88329; G0378; J0131; J1100; J1644; J1885; J2250; J2270; J2405; J3010; J3480; J7120; S2900

== ENCOUNTER 2017-10-13 15:52 | Emergency (ER) | payer MEDICARE, OTHER ==
[~2017-10-13] VITALS: Ht 165.1 cm; Wt 68.0 kg
[~2017-10-13 15:52] MED LIST changes: -ESTR42.5V VAGINAL; +OXYC1TAB63 PO
[2017-10-13 16:10] VITALS: BP 155/70; PULSE 83; RESP 18; TEMP 100.9; O2SAT 95
[2017-10-13 17:33] VITALS: O2SAT 96
[2017-10-13 17:34] VITALS: BP 150/65; PULSE 79; RESP 14; TEMP 98.7; O2SAT 97
[2017-10-13 18:12] LABS: AUTOMATED NEUTROPHIL # 13.3 TH/MM3 (1.8-7.7); BASOPHIL % 0.2 % (0.0-2.0); EOSINOPHIL # 0.4 TH/MM3 (0-0.4); EOSINOPHIL % 2.5 % (0.0-4.0); HEMATOCRIT 34.1 % (35.0-46.0); HEMOGLOBIN 11.6 GM/DL (11.6-15.3); LYMPH % 8.3 % (9.0-44.0); LYMPHOCYTE # 1.4 TH/MM3 (1.0-4.8); MEAN CELL VOLUME 93.3 FL (80.0-100.0); MEAN CORPUSCULAR HEMOGLOBIN 31.8 PG (27.0-34.0); MEAN CORPUSCULAR HGB CONC 34.1 % (32.0-36.0); MEAN PLATELET VOLUME 7.2 FL (7.0-11.0); MONO % 8.3 % (0.0-8.0); MONOCYTE # 1.4 TH/MM3 (0-0.9); NEUT % 80.7 % (16.0-70.0); PLATELET COUNT 371 TH/MM3 (150-450); RED BLOOD COUNT 3.65 MIL/MM3 (4.00-5.30); RED CELL DISTRIBUTION WIDTH 13.2 % (11.6-17.2); WHITE BLOOD COUNT 16.4 TH/MM3 (4.0-11.0)
--- NOTE | 2017-10-13 18:15 | RADRPT ---
EXAM DATE/TIME: 10/13/2017 18:00 [facility] COMPARISON: No previous studies available for comparison. INDICATIONS : Fever, short of breath Hysterectomy 1 week ago MEDICAL HISTORY : Carcinoma, breast. Arthritis. Anemia SURGICAL HISTORY : Hysterectomy. Left breast lumpectomy ENCOUNTER: Initial ACUITY: 1 day PAIN SCORE: 0/10 LOCATION: chest FINDINGS: A single view of the chest demonstrates the lungs to be symmetrically aerated without evidence of mas s, infiltrate or effusion. The cardiomediastinal contours are unremarkable. Osseous structures are intact. CONCLUSION: 1. No active disease. Surgical clips in the left axillary region. Louis Lopez MD on October 13, 2017 at 18:10 Board Certified Radiologist. This report was verified electronically.
[2017-10-13 18:22] LABS: AMORPHOUS SEDIMENT, URINE RARE; BACTERIA, URINE MANY /hpf; BILIRUBIN, URINE NEG (NEG); BLOOD, URINE MOD (NEG); GLUCOSE,URINE NEG (NEG); KETONE, URINE TRACE mg/dL (NEG); MUCUS URINE MANY /lpf (OCC); NITRITE,URINE POS (NEG); SQUAMOUS EPITHELIAL CELL URINE 11 /hpf (0-5); URINE COLOR LIGHT-YELLOW (YELLW/STRAW); URINE LEUKOCYTE ESTERASE LARGE (NEG); WHITE BLOOD CELL CLUMPS FEW
[2017-10-13 18:34] LABS: ALBUMIN 3.3 GM/DL (3.4-5.0); AST (GOT) 47 U/L (15-37); BICARBONATE 29.9 MEQ/L (21.0-32.0); BLOOD UREA NITROGEN 13 MG/DL (7-18); CALCIUM 9.3 MG/DL (8.5-10.1); CHLORIDE 96 MEQ/L (98-107); CREATININE 0.82 MG/DL (0.50-1.00); GLOMERULAR FILTRATION RATE 67 ML/MIN (>89); GLUCOSE,RANDOM 107 MG/DL (74-106); SODIUM (NA) 134 MEQ/L (136-145)
[2017-10-13 18:38] LABS: ALKALINE PHOSPHATASE 161 U/L (45-117); ALT (GPT) 58 U/L (10-53); TOTAL BILIRUBIN ADULT 0.5 MG/DL (0.2-1.0); TOTAL PROTEIN 7.8 GM/DL (6.4-8.2)
[2017-10-13] MEDS ORDERED: cefTRIAXone INJ 1,000 MG in SODIUM CHLORIDE 0.9% INJ 100 ML IV ONE (18:45)
[2017-10-13] MEDS ORDERED: CEPH-460 PO (19:01)
--- NOTE | 2017-10-13 19:02 | PD ---
HPI Chief Complaint: Fever Time Seen by Provider: 17:22 Travel History International Travel<30 days: No Contact w/Intl Traveler<30days: No Traveled to known affect area: No History of Present Illness HPI 81-year-old woman, presents emerged from complaining of fever. Had a hysterectomy done about [address] Rg. Straining fevers yesterday. A little bit of sore throat but not much cough. No bit of chest tightness and nausea. She otherwise had been feeling generally well and healthy. Had the hysterectomy for postmenopausal bleeding. She does get frequent urinary tract infections. She has a history of breast cancer was on estrogen antagonist. She is otherwise been feeling generally well and healthy. No other complaints. History Past Medical History Narrative Medical History of breast CA in the past History of post menopausal bleeding status post hysterectomy Frequent UTIs Menopausal: Yes Social History Alcohol Use: Yes (occassionally ) Tobacco Use: No Allergies-Medications (Allergen,Severity, Reaction): Coded Allergies: Sulfa (Sulfonamide Antibiotics) (Verified Adverse Reaction, Severe, NAUSEA AND VOMITING, 10/03/17) Reported Meds & Prescriptions Reported Meds & Active Scripts Active Oxycodone-Acetaminophen 5-325 (Oxycodone HCl/Acetaminophen) 5 Mg-325 Mg Tablet 1 Tab PO Q4H PRN Reported Multiple Vitamin 1 Tab 1 Tab PO DAILY Temazepam 7.5 Mg Cap 7.5 Mg PO HS PRN Zyrtec (Cetirizine HCl) 10 Mg Tablet 10 Mg PO DAILY Restasis Opth (Cyclosporine Opth) 0.05% Emul 1 Drop EACH EYE BID Flonase Nasal [place] (Fluticasone Nasal [place]) 50 Mcg/Act [place] 50 Mcg EACH NARE BID PRN Bystolic (Nebivolol) 5 Mg Tab 5 Mg PO DAILY Review of Systems Except as stated in HPI: all other systems reviewed are Neg Physical Exam Narrative GENERAL: Well-appearing 81-year-old woman, no acute distress. SKIN: Focused skin assessment warm/dry. HEAD: Atraumatic. Normocephalic. EYES: Pupils equal and round. No scleral icterus. No injection or drainage. ENT: No nasal bleeding or discharge. Mucous membranes pink and moist. NECK: Trachea midline. No JVD. CARDIOVASCULAR: Regular rate and rhythm. No murmur appreciated. RESPIRATORY: No accessory muscle use. Clear to auscultation. Breath sounds equal bilaterally. GASTROINTESTINAL: Abdomen soft, non-tender, nondistended. Hepatic and splenic margins not palpable. Incisions are healing well. There is no erythema redness purulent drainage or tenderness. MUSCULOSKELETAL: No obvious deformities. No clubbing. No cyanosis. No edema. NEUROLOGICAL: Awake and alert. No obvious cranial nerve deficits. Motor grossly within normal limits. Normal speech. PSYCHIATRIC: Appropriate mood and affect; insight and judgment normal. Data Data Last Documented VS Vital Signs Date Time Temp Pulse Resp B/P (MAP) Pulse Ox O2 Delivery O2 Flow Rate FiO2 10/13/17 17:34 98.7 79 14 150/65 (93) 97 Room Air Orders Orders Sepsis Workup Initiated (10/13/17 ) Complete Blood Count With Diff (10/13/17 17:22) Comprehensive Metabolic Panel (10/13/17 17:22) Lactic Acid Sepsis Protocol (10/13/17 17:22) Urinalysis - C+S If Indicated (10/13/17 17:22) Blood Culture (10/13/17 17:22) Ecg Monitoring (10/13/17 17:22) Iv Access Insert/Monitor (10/13/17 17:22) Oximetry (10/13/17 17:22) Oxygen Administration (10/13/17 17:22) Influenzae A/B Antigen (10/13/17 17:52) Chest, Single Ap (10/13/17 ) Urine Culture (10/13/17 17:38) Ceftriaxone Inj (Rocephin Inj) (10/13/17 18:45) Labs Laboratory Tests Test 10/13/17 17:35 10/13/17 17:38 White Blood Count 16.4 TH/MM3 Red Blood Count 3.65 MIL/MM3 Hemoglobin 11.6 GM/DL Hematocrit 34.1 % Mean Corpuscular Volume 93.3 FL Mean Corpuscular Hemoglobin 31.8 PG Mean Corpuscular Hemoglobin Concent 34.1 % Red Cell Distribution Width 13.2 % Platelet Count 371 TH/MM3 Mean Platelet Volume 7.2 FL Neutrophils (%) (Auto) 80.7 % Lymphocytes (%) (Auto) 8.3 % Monocytes (%) (Auto) 8.3 % Eosinophils (%) (Auto) 2.5 % Basophils (%) (Auto) 0.2 % Neutrophils # (Auto) 13.3 TH/MM3 Lymphocytes # (Auto) 1.4 TH/MM3 Monocytes # (Auto) 1.4 TH/MM3 Eosinophils # (Auto) 0.4 TH/MM3 Basophils # (Auto) 0.0 TH/MM3 CBC Comment DIFF FINAL Differential Comment Blood Urea Nitrogen 13 MG/DL Creatinine 0.82 MG/DL Random Glucose 107 MG/DL Total Protein 7.8 GM/DL Albumin 3.3 GM/DL Calcium Level 9.3 MG/DL Alkaline Phosphatase 161 U/L Aspartate Amino Transf (AST/SGOT) 47 U/L Alanine Aminotransferase (ALT/SGPT) 58 U/L Total Bilirubin 0.5 MG/DL Sodium Level 134 MEQ/L Potassium Level 4.0 MEQ/L Chloride Level 96 MEQ/L Carbon Dioxide Level 29.9 MEQ/L Anion Gap 8 MEQ/L Estimat Glomerular Filtration Rate 67 ML/MIN Lactic Acid Level 0.8 mmol/L Urine Color LIGHT-YELLOW Urine Turbidity HAZY Urine pH 6.0 Urine Specific [place] 1.015 Urine Protein TRACE mg/dL Urine Glucose (UA) NEG mg/dL Urine Ketones TRACE mg/dL Urine Occult Blood MOD Urine Nitrite POS Urine Bilirubin NEG Urine Urobilinogen LESS THAN 2.0 MG/DL Urine Leukocyte Esterase LARGE Urine RBC 30 /hpf Urine WBC 123 /hpf Urine WBC Clumps FEW Urine Squamous Epithelial Cells 11 /hpf Urine Amorphous Sediment RARE Urine Bacteria MANY /hpf Urine Mucus MANY /lpf Microscopic Urinalysis Comment CATH-CULTURE IND MDM Medical Decision Making Medical Screen Exam Complete: Yes Emergency Medical Condition: Yes Interpretation(s) LABS: CBC remarkable for white count of 16.4 thousand CMP is generally unremarkable, mild elevated AST and ALT. UA positive for infection Differential Diagnosis UTI, infection, viral syndrome, wound infection, other Narrative Course Medical decision making 81-year-old woman presents with fever, postop, and a Montalvo catheter until couple days ago, has urinary tract infection. This likely explains her symptoms. Recommend antibiotics, outpatient follow-up. Diagnosis Primary Impression: Urinary tract infection Patient Instructions: General Instructions Additional Instructions: Take antibiotics as prescribed. Follow with her primary doctor in the next 2-4 days. Return to the emergency department for any new or worsening symptoms. Med/Other Pt SpecificInfo: Prescription(s) given Scripts Cephalexin (Keflex) 500 Mg Capsule 500 MG PO Q8H for Infection for 7 Days, #21 CAP 0 Refills Prov: Luis Thompson MD 10/13/17 Disposition: 01 DISCHARGE HOME Condition: Stable Luis Thompson MD Oct 13, 2017 19:02
[2017-10-13 20:07] VITALS: BP 175/72
== END 2017-10-13 20:08 | disposition home or self-care (01) ==
LOC: NEPE 15:52
DX: N39.0 Urinary tract infection, site not specified (principal); Z85.3 Personal history of malignant neoplasm of breast; Z90.710 Acquired absence of both cervix and uterus
CPT/HCPCS: 71045; 80053; 81001; 83605; 85025; 87040; 87077; 87086; 87186; 87205; 87804; 96365; 99284; J0696

== ENCOUNTER → 2017-10-28 | Outpatient (CLI) | payer MEDICARE, OTHER ==
[~2017-10-28] MED LIST changes: +CEPH-460 PO
[2017-10-28 13:48] LABS: BACTERIA, URINE MANY /hpf; BILIRUBIN, URINE NEG (NEG); BLOOD, URINE SMALL (NEG); GLUCOSE,URINE NEG (NEG); HYALINE CAST, URINE 2 /lpf (RARE); KETONE, URINE NEG (NEG); MUCUS URINE FEW /lpf (OCC); NITRITE,URINE POS (NEG); PH, URINE 5.5 (5.0-8.5); SQUAMOUS EPITHELIAL CELL URINE 1 /hpf (0-5); TRANSITIONAL EPI CELLS, URINE <1 /hpf; URINE COLOR YELLOW (YELLW/STRAW); URINE LEUKOCYTE ESTERASE MOD (NEG); WHITE BLOOD CELL CLUMPS RARE
== END ==
LOC: PLAB 09:48
PROVIDERS: ATTEND Family Medicine
DX: N39.0 Urinary tract infection, site not specified (principal); B96.20 Unspecified Escherichia coli [E. coli] as the cause of diseases classified elsewhere
CPT/HCPCS: 81001; 87077; 87086; 87186

== ENCOUNTER → 2017-11-13 | Outpatient (CLI) | payer MEDICARE, OTHER ==
[2017-11-13 14:08] LABS: BACTERIA, URINE MOD /hpf; BILIRUBIN, URINE NEG (NEG); BLOOD, URINE SMALL (NEG); GLUCOSE,URINE NEG (NEG); KETONE, URINE NEG (NEG); MUCUS URINE FEW /lpf (OCC); NITRITE,URINE POS (NEG); PH, URINE 6.5 (5.0-8.5); SQUAMOUS EPITHELIAL CELL URINE 2 /hpf (0-5); URINE COLOR YELLOW (YELLW/STRAW); URINE LEUKOCYTE ESTERASE LARGE (NEG)
== END ==
LOC: PLAB 11:30
PROVIDERS: ATTEND Family Medicine
DX: N39.0 Urinary tract infection, site not specified (principal); B96.20 Unspecified Escherichia coli [E. coli] as the cause of diseases classified elsewhere
CPT/HCPCS: 81001; 87077; 87086; 87186

== ENCOUNTER → 2017-11-25 | Outpatient (CLI) | payer MEDICARE, OTHER ==
[2017-11-25 14:08] LABS: BILIRUBIN, URINE NEG (NEG); BLOOD, URINE TRACE (NEG); GLUCOSE,URINE NEG (NEG); KETONE, URINE NEG (NEG); NITRITE,URINE POS (NEG); URINE COLOR YELLOW (YELLW/STRAW); URINE LEUKOCYTE ESTERASE LARGE (NEG)
[2017-11-25 14:09] LABS: BACTERIA, URINE RARE /hpf; MUCUS URINE FEW /lpf (OCC); SQUAMOUS EPITHELIAL CELL URINE 1 /hpf (0-5)
== END ==
LOC: PLAB 10:29
PROVIDERS: ATTEND Family Medicine
DX: N39.0 Urinary tract infection, site not specified (principal); B96.20 Unspecified Escherichia coli [E. coli] as the cause of diseases classified elsewhere
CPT/HCPCS: 81001; 87077; 87086; 87186